=== PATIENT | female | born 1965 | race Caucasian/White ===

== ENCOUNTER 2018-01-25 18:44 | Emergency (ER) | payer OTHER ==
[2018-01-25] MEDS: SOD CHLORIDE 0.9% 1,000 ML IV (19:27)
[2018-01-25] MEDS: HYDROmorphONE 1 MG/ML SYG IV ×2 (19:28→21:46)
[2018-01-25] MEDS: ONDANSETRON 4 MG INJ IV ×2 (19:28→21:46)
[2018-01-25 19:35] LABS: ADD MAN DIFF? NO
[2018-01-25 19:36] LABS: BASOPHILS % 0.3 % (0.0-2.0); EOSINOPHILS # 0.2 10^3/ul (0.0-0.5); EOSINOPHILS % 1.2 % (0.0-7.0); HEMOGLOBIN 13.2 g/dl (12.0-16.0); LYMPHOCYTES # 3.9 10^3/ul (0.8-2.9); LYMPHOCYTES % 28.8 % (15.0-51.0); MEAN CORPUSCULAR HEMOGLOBIN 28.9 pg (29.0-33.0); MEAN CORPUSCULAR VOLUME 87.7 fl (82.0-101.0); MEAN PLATELET VOLUME 10.8 fl (7.4-10.4); MONOCYTE # 0.9 10^3/ul (0.3-0.9); MONOCYTES % 6.2 % (0.0-11.0); NEUTROPHIL # 8.6 10^3/ul (1.6-7.5); NEUTROPHILS % 63.1 % (39.0-77.0); PLATELET COUNT 346 10^3/UL (140-415); RED BLOOD COUNT 4.56 10^6/ul (4.20-5.40); RED CELL DISTRIBUTION WIDTH 13.9 % (11.5-14.5)
[2018-01-25 19:36] LABS: WHITE BLOOD COUNT 13.6 10^3/ul (4.8-10.8)
[2018-01-25 20:03] LABS: ALANINE AMINOTRANSFERASE 77 IU/L (13-69); ALBUMIN 4.4 g/dl (3.3-4.9); ALBUMIN/GLOBULIN RATIO 1.02; ALKALINE PHOSPHATASE 102 IU/L (42-121); ANION GAP 13 (8-16); ASPARTATE AMINO TRANSFERASE 54 IU/L (15-46); BILIRUBIN,INDIRECT 0.2 mg/dl (0-1.1); BILIRUBIN,TOTAL 0.2 mg/dl (0.2-1.3); BLOOD UREA NITROGEN 9 mg/dl (7-20); CALCIUM 9.4 mg/dl (8.4-10.2); CARBON DIOXIDE 25 mmol/L (21-31); CHLORIDE 104 mmol/L (97-110); GLUCOSE 244 mg/dl (70-220); LIPASE 128 U/L (23-300); POTASSIUM 3.9 mmol/L (3.5-5.1); SODIUM 138 mmol/L (135-144); TOTAL PROTEIN 8.7 g/dl (6.1-8.1)
[2018-01-25] MEDS: SOD CHLORIDE 0.9% 100 ML (21:33)
[2018-01-25] MEDS: IOHEXOL 300MG/ML 150 ML BTL (21:33)
== END 2018-01-25 22:16 | disposition home or self-care (01) ==
LOC: E/R 18:44
DX: R10.84 Generalized abdominal pain (principal); I10 Essential (primary) hypertension; E11.9 Type 2 diabetes mellitus without complications; R11.0 Nausea
CPT/HCPCS: 36415; 74177; 80053; 83690; 85025; 96374; 96375; 96376; 99285-25